=== PATIENT | female | born 1995 | race Caucasian/White ===

== ENCOUNTER 2023-08-20 02:13 | Inpatient (IN) | payer BC, SELFPAY ==
[2023-08-20] VITALS (128 sets, daily range): BP systolic 93–138; BP diastolic 50–80; PULSE 58–181; RESP 16–18; TEMP 36.4–37.8; O2SAT 97–100; BMI 27.3
[2023-08-20] MEDS: LACTATED RINGERS 1000 ML 1,000 ML 1200 ML IV ×2 (02:26→04:03)
[2023-08-20 02:27] LABS: Basophils Percent Auto 0.2 % (0.0-3.0); Eosinophils Percent Auto 0.4 % (0.0-7.0); Hematocrit 36.8 % (33.0-51.0); Hemoglobin* 12.6 gm/dL (12.0-16.0); Immature Granulocytes Pct Auto 0.8 %; Lymphocytes Percent Auto 11.6 % (20-44); Mean Corpuscular HGB Conc 34 gm/dL (32-36); Mean Corpuscular Hemoglobin 28 pg (26-34); Mean Corpuscular Volume 81 fL (80-100); Monocytes Percent Auto 8.1 % (0.0-11.0); Neutrophils Percent Auto 78.9 % (42.0-72.0); Platelet Count* 256 K/uL (140-440); Red Blood Count 4.55 m/uL (4.00-5.20); Slide Review Reflex No
[2023-08-20] MEDS: AMPICILLIN 2 GM in 0.9 % SODIUM CHLORIDE Mini-bag 100 ML IVPB (02:38)
[2023-08-20] MEDS: LIDOCAINE 2% (PF) 5 ML VIAL EPIDURAL ×4 (03:04→23:45)
[2023-08-20] MEDS: ROPIVACAINE 0.2% 100 ml 100 ML 12 MG EPIDURAL ×3 (03:04→18:30)
[2023-08-20] MEDS: fentaNYL 250 MCG/5 ML inj 100 MCG EPIDURAL (03:04)
--- NOTE | 2023-08-20 03:17 | PM.ANBPRC ---
PFSH PFSH Social History What is your current living situation?: I presently have a place to live Problems where you live: no known problems In the past 12 months, utilities in danger of being shut off: no In past 12 months, lack of transportation kept you from medical appts, meetings, work, or getting things needed for daily living: no In the past 12 mos, have been you worried that your food would run out before you had money to buy more?: never true In the past 12 mos, the food you bought just didn't last and you didn't have money to buy more?: never true Smoking Status: Never smoker How often does anyone, including family, friends and others, physically hurt you: never How often does anyone, including family, friends and others, insult or talk down to you: never How often does anyone, including family, friends and others, threaten you with harm: never How often does anyone, including family, friends and others, scream or curse at you: never Results Labs Labs: Laboratory Results - last 24 hr 08/20/23 02:20 WBC 11.60 H RBC 4.55 Hgb 12.6 Hct 36.8 MCV 81 MCH 28 MCHC 34 RDW Coeff of [place] 13.0 Plt Count 256 Neut % (Auto) 78.9 H Lymph % (Auto) 11.6 L [place] % (Auto) 8.1 Eos % (Auto) 0.4 Baso % (Auto) 0.2 Neut # (Auto) 9.20 H Lymph # (Auto) 1.30 [place] # (Auto) 0.90 Eos # (Auto) 0.00 Baso # (Auto) 0.00 Abs Immat Gran (auto) 0.10 Imm/Tot Granulo (auto) 0.8 Blood Type A Positive Antibody Screen NEGATIVE Vital Signs Vital Signs: Last Vital Signs Pulse 80 08/20/23 03:11 BP 107/69 08/20/23 03:11 Pulse Ox 100 08/20/23 03:00 Weight: 76.685 kg Height: 167.64 cm Anesthesia Procedures Epidural Insertion Patient Location: OB Start Time: :45 Stop Time: 03:45 Start Date: 08/20/23 Stop Date: 08/20/23 Reason for Block: primary anesthetic Patient Position: sitting Performed By: Singh Castillo Preanesthetic Checklist: IV checked, risks and benefits discussed, surgical consent, monitors and equipment checked, pre-op evaluation, timeout performed and anesthesia consent Prep: chlorhexidine gluconate Monitoring: blood pressure monitoring, curve cleaner, continuous pulse oximetry and heart rate Approach: midline Vertebral Space: lumbar (1-5) Needle Type: Tuohy needle Injection Technique: continuous catheter Needle gauge: 17 Needle Length (cm): 10 cm Needle Insertion Depth (cm): 6 Catheter Gauge: 19 Catheter Type: multi-orifice Catheter at skin depth (cm): 12 Test Dose Result: negative and lidocaine 1.5% with epinephrine 1 to 200,000 Events: other
--- NOTE | 2023-08-20 03:37 | PM.OBHPLI ---
OB - H&P: HPI Labor/Induction History of Present Illness Date Seen: 08/20/23 Chief Complaint: The patient is a 28 year old 1 para 0 at 40+3 weeks gestation by LMP and confirmed with 1st trimester US, who presents with painful regular contractions starting at 2300 on 08/19/2023. Chief complaint: Maternity : 1 Narrative: Sonya Lewis is a 28 year at 40+3 by LMP who presented in active labor at 0130 this morning. she has been having contractions every 10-20 minutes starting the evening of 08/18/23, however these became more painful and regular starting aroudn 2300 on 08/19. Her has been otherwise uncomplicated. She is group B strep +, rH+, rubella immune. History of Present Dating criteria: based on LMP care: good care Ultrasounds: normal 1st trimester US and normal mid trimester US Medical complications: none Labs Blood type: A (+) positive Rubella: immune RPR/VDLR: nonreactive GBS status: positive HBsAG: negative Review of Systems Status of ROS: Reports: 6 or more systems reviewed and unremarkable except as noted in History and below Meds Home Medications and Allergies Allergies Allergy/AdvReac Type Severity Reaction Status Date / Time NKDA Allergy Uncoded 08/20/23 03:38 OB - H&P: Exam Physical Exam: Vital signs: Pulse BP Pulse Ox 88 105/63 100 08/20/23 03:29 08/20/23 03:29 08/20/23 03:00 Constitutional: Constitutional: no acute distress Routine HEENT Exam: Head: Present atraumatic Eye: Present EOMI and PERRL ENT: Present mucous membranes moist Routine Neck Exam: Neck: Present full ROM Routine Respiratory Exam: Respiratory: Present CTA bilaterally Routine Cardiovascular Exam: Cardiovascular: RRR Detailed Labor and Delivery Exam: Patient Gravid: Yes Dilation (cm): 3 Effacement (%): 100 Cervix position: mid Consistency: soft Contraction frequency (min): 2 Contraction intensity: Strong/Firm Fetus (Single): Station: -2 Amniotic Membrane Status: intact Routine Skin Exam: Present intact and normal turgor Routine Neurological Exam: Present alert, oriented X3 and CN II-XII intact Routine Psychiatric Exam: Present normal affect OB - Results Labs Labs: Short CBC 08/20/23 Range/Units 02:20 WBC 11.60 H (4.50-11.00) K/uL Hgb 12.6 (12.0-16.0) gm/dL Hct 36.8 (33.0-51.0) % Plt Count 256 (140-440) K/uL OB - Problem Based A/P Additional Plan (1) Active labor at term: Status: Acute Plan Epidural for labor analgesia. Abx given for +GBS Anticipate . Delivery/Labor/Induction Plan Plan: expectant management
[2023-08-20] MEDS: CALCIUM CARBONATE 500 MG CHEW PO (04:03)
[2023-08-20] MEDS: PHENYLEPHRINE 100 MCG/ML SYRINGE IVP ×3 (04:22→13:16)
[2023-08-20] MEDS: ONDANSETRON 2 MG/ML inj 4 MG IV ×3 (05:28→20:40)
[2023-08-20] MEDS: AMPICILLIN 1 GM in 0.9 % SODIUM CHLORIDE Mini-bag 100 ML IVPB ×5 (06:45→23:34)
[2023-08-20] MEDS: LACTATED RINGERS 1000 ML 1,000 ML 999 ML IV (06:45)
--- NOTE | 2023-08-20 08:52 | P.OBPN_ITS ---
Subjective Date Seen: 08/20/23 Narrative: Sonya is a 28 yo at 40+3 admitted overnight in active labor. She received an epidural for labor analgesia and abx for +GBS. Over the last few hours, contractions have spaced from every 2-3 to every 5-6 minutes. After discussing options, patient agreed to undergo AROM. AROM'ed with return of a large amount of clear fluid. Patient remains comfortable with epidural. Still struggling with reflux and associated nausea/vomiting. Objective Vital Signs: Last Vital Signs Temp 98.3 F 08/20/23 07:52 Pulse 77 08/20/23 08:46 Resp 16 08/20/23 07:52 BP 112/71 08/20/23 08:46 Pulse Ox 100 08/20/23 03:00 Pelvic Exam Dilation (cm): 5 Effacement (%): 100 Station: -1 Contractions Monitor mode: External Contraction Frequency: 3-6 Contraction pattern: Irregular Contraction intensity: Strong/Firm Assessment Assessment: active labor Station: -1 Amniotic Membrane Status: AROM Status: Category l Heart Rate Baseline: 130 Longterm Variability: Moderate (6-25) Monitor Accelerations: Present Monitor Decelerations: None Plan Plan: Continue expectant management for now, discussed adding pitocin if contractions do not increase in frequency. Continue Abx for +GBS. Anticipate .
[2023-08-20] MEDS: MAG HYDROX/ALUMINUM HYD/SIMETH 30 ML ORAL.SUSP PO ×2 (10:29→20:51)
[2023-08-20] MEDS: LACTATED RINGERS 1000 ML 1,000 ML 125 ML IV ×2 (11:26→20:24)
[2023-08-20] MEDS: PANTOPRAZOLE SODIUM 40 MG INJ IVP (15:12)
[2023-08-20] MEDS: ACETAMINOPHEN 500 MG TABLET 1000 MG PO (18:47)
[2023-08-20] MEDS: OXYTOCIN 30 unit/500 ML in NS 30 UNIT/500 ML BAG IVPB (20:41)
[2023-08-20] MEDS: fentaNYL 100 MCG/2 ML inj EPIDURAL (21:27)
--- NOTE | 2023-08-20 21:50 | PM.OBPNL ---
Subjective Date Seen: 08/20/23 Narrative: Sonya is a at 40+3 who presented in active labor. 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 Pitocin was started at 2030 and contractions have been in a more consistent pattern. Unfortunately, epidural has not been working well intermittently since 1800, she just had a bolus by anesthesia and now is comfortable, so IUPC placed. She also continues to struggle with nausea, vomiting and heartburn. Objective Vital Signs: Last Vital Signs Temp 98.8 F 08/20/23 20:52 Pulse 81 08/20/23 21:48 Resp 16 08/20/23 18:54 BP 108/54 L 08/20/23 21:48 Pulse Ox 100 08/20/23 11:27 Pelvic Exam Dilation (cm): 9 Effacement (%): 100 Station: 0 Contractions Monitor mode: External Contraction Frequency: 3 Contraction pattern: Regular Contraction intensity: Strong/Firm Assessment Assessment: active labor Station: 0 Amniotic Membrane Status: AROM Status: Category l Heart Rate Baseline: 150 Cloth Checker Variability: Moderate (6-25) Monitor Accelerations: Present Monitor Decelerations: None Plan Plan: Continue pitocin per protocol. Abx for GBS+ Anticipate . 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
[2023-08-20] MEDS: METOCLOPRAMIDE HCL 5 MG/ML INJ 10 MG IVP (22:11)
[2023-08-21] VITALS (19 sets, daily range): BP systolic 109–138; BP diastolic 57–78; PULSE 77–137; RESP 16–18; TEMP 36.5–36.7; O2SAT 98
[2023-08-21] MEDS: ROPIVACAINE 0.2% 100 ml 100 ML 14 MG EPIDURAL (00:07)
--- NOTE | 2023-08-21 00:17 | P.OBPN_ITS ---
Subjective Date Seen: 08/21/23 Narrative: Sonya is a at 40+4 in active labor. Epidural no longer providing adequate relief. She is feeling contractions and some rectal pressure with contractions. Objective Vital Signs: Last Vital Signs Temp 98.7 F 08/20/23 22:50 Pulse 99 08/21/23 00:04 Resp 16 08/20/23 18:54 BP 136/70 08/21/23 00:04 Pulse Ox 100 08/20/23 11:27 Pelvic Exam Dilation (cm): 9.5 Effacement (%): 100 Station: +1 Contractions Monitor mode: External Contraction Frequency: 2 Contraction pattern: Regular Contraction intensity: Strong/Firm Pitocin Rate (mU/min): 5 Assessment Assessment: active labor Station: +1 Amniotic Membrane Status: AROM Status: Category l Heart Rate Baseline: 140 Nursing Home Variability: Moderate (6-25) Monitor Accelerations: Present Monitor Decelerations: Variable Plan Plan: Continue pitocin per protocol. anticipate .
[2023-08-21] MEDS: LIDOCAINE 1 % PF 30 ML INJECTION (02:03)
--- NOTE | 2023-08-21 02:29 | W.PM.VAGDEL1 ---
Procedure Delivery date: 08/21/23 Procedure Done: Global Delivery augmentation: rupture of membranes and pitocin Delivery monitor: external FHT and internal uterine Route of delivery: Laceration description: Perineal - 2nd Degree Delivery repair: Vicryl Estimated blood loss (mL): 600 Anesthesia type: Epidural Narrative: The patient is a 28 year-old admitted on 08/20/2023 at 40 Weeks, 3 Days gestation for active labor.? Cervical exam on admission was 3 cm/90 % effaced/-2 station with membranes intact in vertex presentation.? Contractions were every 2-3 minutes.? heart rate demonstrated baseline 130 bpm with moderate variability, + accelerations, - decelerations; a category 1 tracing.? AROM occurred at 0825 with clear fluid. ? Labor Analgesia:? epidural ? Pitocin:? yes ? Labor onset:? 08/20/23 0000 ? Complete:? 08/21/2023 0024 ? Pushing:? 0029 ? heart tones during second stage were category II. ? At 0146 a viable female delivered in vertex OP presentation over intact perineum via spontaneous vaginal delivery.? Infant was placed on maternal abdomen.? Cord was clamped and cut after a 30-60 second delay.? Nose and mouth were bulb suctioned.? Infant weight pending.? 6 at 1 minute and 9 at 5 minutes.? Shoulder dystocia: no.? Nuchal cord: yes x1, reduced at perineum. ? Placenta delivered spontaneously and complete at 0150 with a 3 vessel cord. ? Mother and infant were stable after delivery. ? Lacerations:? 2nd degree, repaired with 3-0 vicryl. ? Blood loss: 600 mL. Blood loss measurement type: QBL ? Sponge and needles counts are correct. [place] Infant Infant Gender: Female presentation: vertex Placental Delivery Description: Spontaneous Cord Description: 3 Vessels, Nuchal Cord, Loose and Reduced total score - 1 minute: 6 total score - 5 minute: 9
[2023-08-21] MEDS: IBUPROFEN 600 MG TABLET PO ×4 (02:38→21:06)
[2023-08-21] MEDS: OXYCODONE 5 MG TABLET PO (03:16)
[2023-08-21] MEDS: DOCUSATE SODIUM 100 MG CAPSULE PO (08:43)
--- NOTE | 2023-08-21 13:18 | PM.ANPOST ---
Post Anesthesia Note Post Anesthesia Note Patient seen: Inpatient Respiratory Status: adequate Cardiovascular Status: adequate Mental Status: baseline Pain: adequate Temp: baseline Anesthetic awareness: N/A Complications: none Follow care: none
[2023-08-22] MEDS: ACETAMINOPHEN 500 MG TABLET 1000 MG PO ×2 (00:44→08:29)
[2023-08-22 03:38] LABS: Rapid Plasma Reagin (RPR) Non Reactive (Non Reactive)
[2023-08-22 05:00] VITALS: BP 112/72; PULSE 63; RESP 16; TEMP 36.6; O2SAT 98
[2023-08-22] MEDS: IBUPROFEN 600 MG TABLET PO ×2 (05:04→12:27)
[2023-08-22 06:22] LABS: Hemoglobin* 8.8 gm/dL (12.0-16.0)
--- NOTE | 2023-08-22 08:28 | PM.OBDSVD1 ---
DS: Providers Provider Date Seen: 08/22/23 Date of admission: 08/20/23 02:13 Primary care physician: Yuni Nogueira MD Admitting Clinician: Yuni Nogueira MD Attending Physician on discharge: Yuni Nogueira MD DS: Diagnosis Discharge Diagnosis (1) Vaginal delivery: Status: Acute Exam Const: Vital Signs, click to edit/add: Vital Signs - 24 hr 08/21/23 08:37 08/21/23 12:42 08/21/23 16:45 Temperature 98.0 F 98.0 F 97.7 F Pulse Rate [Right Radial] 90 89 83 Respiratory Rate 18 16 16 Blood Pressure [Le ft Arm] 119/78 110/74 114/69 Pulse Oximetry 98 98 98 Oxygen Delivery Me thod Room Air Room Air Room Air 08/21/23 23:10 08/22/23 05:00 Temperature 98.1 F 97.8 F Pulse Rate [Right Radial] 78 63 Respiratory Rate 16 16 Blood Pressure [Le ft Arm] 112/61 112/72 Pulse Oximetry 98 Oxygen Delivery Me thod Room Air Room Air Common normals: no apparent distress HENMT: Common normals: normocephalic Head and scalp: normocephalic Eye: Common normals: PERRL Pupil: PERRL GI: Common normals: Normal to inspection, nondistended, normoactive bowel sounds present Other: Uterus firm 2 cm below umbilicus. OB - DS: Summary Hospital Course Hospital Course: The patient is a 28 year old G 1 P 1 at 40+4 weeks gestation that was admitted to the Center on 08/20/23 for active labor. She had an uncomplicated vaginal delivery. She delivered a viable female . She is breast feeding. the patient has done well. Peripartum Data delivery method: Vaginal Laceration description: Perineal - 2nd Degree complications: none [place] Infant Gender: Female Infant Discharge Plan: Home Status at Discharge Functional status at discharge: independent ambulation Overall status at discharge: patient is progressing back to baseline Time Spent with Patient Time attestation: Total time spent providing and/or coordinating discharge services: Discharge Plan Discharge Disposition: Home, Self-Care Date of Admission: 08/20/23 02:13 Primary Care Provider: Yuni Nogueira Condition: Improved Anticipated Discharge Date/Time: 08/22/23 08:31 Discharge Medications: No Action No Known Home Medications Discharge Orders: Discharge Order (Routine); Ordered 08/22/23 Ordered By: Yuni Nogueira Patient Education: OB Vaginal/Breast Feeding Activity Level: Activity as Tolerated Activity Detail: nothing per vagina x6 weeks Discharge Diet: Regular Follow Up Appointments: Yuni Nogueira MD [Primary Care Provider] - Forms: [facility] [place] Info Instructions
[2023-08-22] MEDS: DOCUSATE SODIUM 100 MG CAPSULE PO (08:30)
[2023-08-22 09:32] VITALS: BP 97/59; PULSE 73; RESP 16; TEMP 36.6; O2SAT 97
== END 2023-08-22 15:39 | disposition home or self-care (01) | DRG 560 ==
LOC: OB OUT 08-22 11:23 → OB 08-22 11:23
PROVIDERS: Admitting Provider Family Medicine; PCP Family Medicine; Visit Provider Family Medicine
DX: O70.1 Second degree perineal laceration during delivery (principal); Z3A.40 40 weeks gestation of pregnancy; Z37.0 Single live birth; O99.824 Streptococcus B carrier state complicating childbirth; R12 Heartburn; R11.2 Nausea with vomiting, unspecified
CPT/HCPCS: 01967; 36415; 85018; 85025; 86592; 86850; 86900; 86901; G0463; A9270; C9113; J0290; J2001; J2371; J2405; J2765; J2795; J3010; J7120

== ENCOUNTER 2024-01-30 09:45 | Outpatient (RCR) | payer BC, SELFPAY | END 2024-05-29 23:59 | disposition home or self-care (01) | PROVIDERS: PCP Family Medicine; Visit Provider Family Medicine | DX: N39.3 Stress incontinence (female) (male) (principal); Z51.89 Encounter for other specified aftercare | CPT/HCPCS: 97112; 97140; 97162; 97530 ==